=== PATIENT | female | born 1995 | race Caucasian/White ===

== ENCOUNTER 2021-11-15 17:32 | Emergency (ER) | payer BC ==
[~2021-11-15] VITALS: Ht 165.1 cm; Wt 73.9 kg
[2021-11-15 17:37] VITALS: BP_SYST 122
--- NOTE | 2021-11-15 17:55 | NUR ---
Patient to ER bed 06 to gown for evaluation. Side rails up.
--- NOTE | 2021-11-15 18:00 | NUR ---
Pt brought by HITESH [email or web address], pt presents to ER with hives and tightness of throat after wating Soy few hours ago, pt was given epi 0.5 mg and Benadryl on route, skin pink and warm,cap refill <3, VSS, respirations even and unlabored
--- NOTE | 2021-11-15 18:20 | NUR ---
Dr Goldman evaluating patient at bedside
[2021-11-15] MEDS ORDERED: predniSONE 20 MG TABLET PO ONE (18:30)
[2021-11-15] MEDS ORDERED: DIPHENHYDRAMINE HCL 50 MG CAPSULE PO ONE (18:30)
--- NOTE | 2021-11-15 19:35 | NUR ---
Pt A&Ox4, VSS, respirations even and unlabored, cap refill <3.
[2021-11-15] MEDS ORDERED: EPIN0.3P3 IM (20:19)
[2021-11-15] MEDS ORDERED: DIPH25CA83 PO (20:19)
[2021-11-15] MEDS ORDERED: FAMO20TA8 PO (20:19)
[2021-11-15] MEDS ORDERED: PRED20TA PO (20:19)
--- NOTE | 2021-11-15 20:28 | NUR ---
Patient given written and verbal discharge instructions and verbalizes understanding. ER MD discussed with patient the results and treatment provided. Patient in stable condition. ID arm band removed. Rx of BENADRYL,EPIPEN,PEPCID,PREDNISONE given. Patient educated on pain management and to follow up with PMD. Pain Scale 0/10. Opportunity for questions provided and answered. Medication side effect fact sheet provided.
[2021-11-15 20:29] VITALS: BP_SYST 115
== END 2021-11-15 20:29 | disposition home or self-care (01) ==
LOC: SED 17:32
DX: T78.09XA Anaphylactic reaction due to other food products, initial encounter (principal); Z79.899 Other long term (current) drug therapy
CPT/HCPCS: 99283; J7512; Q0163